=== PATIENT | female | born 1955 | race Caucasian/White ===

== ENCOUNTER 2022-06-03 18:50 | Emergency (ER) | payer MEDICARE ==
[2022-06-03] MEDS ORDERED: Bacitracin Oint 1 GM U/D Packet ONE (19:07)
[2022-06-03] MEDS ORDERED: Bacitracin Oint 1 GM U/D Packet TOP ONE (19:07)
[2022-06-03 19:30] VITALS: BP 168/90; PULSE 70
== END 2022-06-03 19:40 | disposition home or self-care (01) ==
LOC: JP.ED 18:50
DX: S01.01XA Laceration without foreign body of scalp, initial encounter (principal); I11.0 Hypertensive heart disease with heart failure; I50.9 Heart failure, unspecified; E11.21 Type 2 diabetes mellitus with diabetic nephropathy; I25.2 Old myocardial infarction; Z95.0 Presence of cardiac pacemaker; Z88.8 Allergy status to other drugs, medicaments and biological substances; Z79.82 Long term (current) use of aspirin; Z79.84 Long term (current) use of oral hypoglycemic drugs; Z79.02 Long term (current) use of antithrombotics/antiplatelets; Z79.899 Other long term (current) drug therapy; W22.09XA Striking against other stationary object, initial encounter
CPT/HCPCS: 12002; 99282; 99283